=== PATIENT | female | born 1945 | race Caucasian/White ===

== ENCOUNTER → 2020-06-13 10:20 | Outpatient (CLI) | payer MEDICARE, SELFPAY ==
--- NOTE | ~2020-06-13 | XR_ITS ---
XR shoulder LT min 2V 06/13/2020 11:08 Indication: Left shoulder pain Procedure: 4 views left shoulder Comparison: No prior studies for comparison. Findings: No fracture or traumatic malalignment. There is mild degenerative change of the glenohumera l joint. There is anatomic alignment. No significant soft tissue abnormality. No foreign bodies. Impression: 1: Mild osteoarthritis of the glenohumeral joint. Reviewed, dictated and finalized at location B. Impression: 1: Mild osteoarthritis of the glenohumeral joint.
== END ==
PROVIDERS: PCP Physician Assistant
DX: M19.012 Primary osteoarthritis, left shoulder (principal)
CPT/HCPCS: 73030

== ENCOUNTER → 2020-08-16 08:39 | Outpatient (CLI) | payer MEDICARE, SELFPAY ==
--- NOTE | ~2020-08-16 | US_ITS ---
EXAMINATION: US transvaginal DATE: 08/16/2020 09:04 INDICATION: Postmenopausal bleeding. TECHNIQUE: Multiple transvaginal sonographic images of the pelvis were obtained. COMPARISON: None. FINDINGS: The uterus measures 6.0 x 3.2 x 3.5 cm. There is no free fluid in the pelvis. The endometrial complex measures 12 mm in thickness. The ovaries are not visualized. IMPRESSION: 1. Thickened endometrial complex suspicious for malignancy. Biopsy is recommended. Reviewed, dictated and finalized at location A. COORDINATOR IMPRESSION: 1. Thickened endometrial complex suspicious for malignancy. Biopsy is recommend ed.
== END ==
PROVIDERS: PCP Physician Assistant; Visit Provider Nurse Practitioner
DX: N95.0 Postmenopausal bleeding (principal)
CPT/HCPCS: 76830

== ENCOUNTER → 2020-08-30 10:02 | Outpatient (CLI) | payer MEDICARE, SELFPAY ==
--- NOTE | ~2020-08-30 | MM_ITS ---
EXAMINATION: MM screening ovidio BI w deneen HISTORY: Screening mammogram TECHNIQUE: Craniocaudal and mediolateral oblique 3-D tomosynthesis images were obtained and synthetic 2-D images were generated. CAD analysis was submitted and interpreted. COMPARISON: 06/30/2019 bilateral digital screening mammogram 03/24/2019 diagnostic left digital mammogram and limited left breast ultrasound 05/03/2018, 04/23/2017 bilateral digital screening mammogram examinations BREAST PARENCHYMAL COMPOSITION: There are scattered areas of fibroglandular density. FINDINGS: Surgical clips are noted on the right for history of prior benign right breast biopsy. Ther e is no evidence of suspicious mass, calcification, or architectural distortion to suggest malignancy in either breast. There has been no suspicious interval change. IMPRESSION: 1. No mammographic evidence of malignancy. 2. Recommend routine screening mammography in one year. BI-RADS Category 2: Benign finding(s). Reviewed, dictated and finalized at location A. STAPLER
== END ==
PROVIDERS: PCP Physician Assistant; Visit Provider Obstetrics & Gynecology Gynecology
DX: Z12.31 Encounter for screening mammogram for malignant neoplasm of breast (principal)
CPT/HCPCS: 77063; 77067

== ENCOUNTER 2020-10-02 13:06 | Outpatient (CLI) | payer MEDICARE, SELFPAY ==
--- NOTE | 2020-10-02 13:07 | ECG_ITS ---
Measurements Intervals [place] Rate: 63 P: 29 PA: 178 QRS: -4 QRSD: 105 T: 21 QT: 401 QTc: 413 Interpretive Statements SINUS RHYTHM VOLTAGE CRITERIA FOR LVH DELAYED PRECORDIAL R/S TRANSITION BORDERLINE ECG Electronically Signed On 10-02-2020 13:28:52 [employer] by Rajinder Robert D.O.
[2020-10-02 14:12] LABS: Anion Gap 10 mmol/L (8-16); Blood Urea Nitrogen 20 mg/dL (7-17); Calcium 9.5 mg/dL (8.4-10.2); Carbon Dioxide 27 mmol/L (22-30); Chloride 94 mmol/L (98-107); Estimated Glomerular Filt Rate 54; Glucose 104 mg/dL (65-105); Potassium 3.9 mmol/L (3.4-5.0); Sodium 131 mmol/L (137-145)
== END 2020-10-02 13:07 | disposition home or self-care (01) ==
PROVIDERS: Anesthesiology; PCP Physician Assistant; Visit Provider Obstetrics & Gynecology Gynecology
DX: Z01.818 Encounter for other preprocedural examination (principal); I10 Essential (primary) hypertension; E11.9 Type 2 diabetes mellitus without complications; R94.31 Abnormal electrocardiogram [ECG] [EKG]
CPT/HCPCS: 36415; 80048; 93005

== ENCOUNTER → 2020-11-16 02:18 | Outpatient (CLI) | payer MEDICARE, SELFPAY ==
[2020-11-16 21:58] LABS: SARS-CoV-2 RNA PCR Negative
== END ==
PROVIDERS: PCP Physician Assistant; Visit Provider Obstetrics & Gynecology Gynecology
DX: Z01.812 Encounter for preprocedural laboratory examination (principal); Z20.822 Contact with and (suspected) exposure to COVID-19
CPT/HCPCS: C9803; U0003; U0005

== ENCOUNTER 2020-11-16 14:25 | Outpatient (CLI) | payer MEDICARE, SELFPAY ==
[2020-11-16 15:17] LABS: Alanine Aminotransferase 22 U/L (4-35); Albumin Level 4.1 g/dL (3.5-5.1); Alkaline Phosphatase 48 U/L (38-126); Anion Gap 8 mmol/L (8-16); Aspartate Amino Transferase 33 U/L (14-36); Bilirubin,Total 0.4 mg/dL (0.2-1.3); Blood Urea Nitrogen 14 mg/dL (7-17); Carbon Dioxide 29 mmol/L (22-30); Chloride 93 mmol/L (98-107); Estimated Glomerular Filt Rate > 60; Glucose 145 mg/dL (65-105); Potassium 3.8 mmol/L (3.4-5.0); Sodium 130 mmol/L (137-145)
== END 2020-11-16 14:26 | disposition home or self-care (01) ==
LOC: ANHLAB 14:28
PROVIDERS: PCP Physician Assistant; Visit Provider Physician Assistant
DX: E87.1 Hypo-osmolality and hyponatremia (principal)
CPT/HCPCS: 36415; 80053

== ENCOUNTER 2020-11-19 00:52 | Day surgery (SDC) | payer MEDICARE, SELFPAY ==
[2020-10-01 13:37] VITALS: BMI 32.9
[2020-11-12 12:25] VITALS: BMI 33.3
[2020-11-19 06:07] VITALS: BP 152/73; PULSE 66; RESP 18; TEMP 36.1; O2SAT 98
[2020-11-19] MEDS: ACETAMINOPHEN 500 MG TABLET 1000 MG PO (06:26)
[2020-11-19] MEDS: LACTATED RINGERS 1,000 ML 30 ML IV CONT (06:28)
[2020-11-19 06:37] LABS: Glucose Point of Care 139 (65-105)
--- NOTE | 2020-11-19 07:02 | WPDANESEPPF ---
Anes - Initial Pre Proc Eval Procedure: Operation Date: 11/19/20 07:30 Proposed Procedures p Hysteroscopy Dilation and Curettage - Shayy Mccall MD Date/Time: 11/19/20 07:02 Surgeon: Shayy Mccall MD Pre Op Diagnosis: postmenopausal bleeding, thickened endometrium Patient Data Age: 75 Gender: F Height: 4 ft 11 in Weight: 75 kg Allergies Allergy/AdvReac Type Severity Reaction Status Date / Time Penicillins Allergy Unknown Rash Verified 11/12/20 12:21 codeine AdvReac Severe Nausea Verified 11/12/20 12:21 adhesive tape AdvReac Unknown Itching Verified 11/12/20 12:21 Home Medications Medication Instructions Recorded Confirmed Type amlodipine 5 mg PO QAM 10/01/20 11/12/20 History aspirin [Aspir-Low] 81 mg PO QPM 10/01/20 11/12/20 History atorvastatin 20 mg PO QPM 10/01/20 11/12/20 History diphenhydramine HCl [Sleep Aid 25 mg PO HS 10/01/20 11/12/20 History (diphenhydramine)] flaxseed oil 1,000 mg PO DAILY 10/01/20 11/12/20 History losartan-hydrochlorothiazide 1 tablet PO QAM 10/01/20 11/12/20 History meloxicam 7.5 mg PO DAILY 10/01/20 11/12/20 History metformin 500 mg PO QAM 10/01/20 11/12/20 History metoprolol succinate 25 mg PO QAM 10/01/20 11/12/20 History multivitamin,km-hiyf-qxjlqtee 1 tablet PO DAILY 10/01/20 11/12/20 History [Complete Multivitamin] omega 3-suq-jqq-fish oil [Fish Oil] 1 cap PO DAILY 10/01/20 11/12/20 History omeprazole 40 mg PO QPM 10/01/20 11/12/20 History potassium chloride [Klor-Con M20] 20 meq PO HS 10/01/20 11/12/20 History trazodone 100 mg PO HS 10/01/20 11/12/20 History vit A,C and C-etvyfk-qjdkwckc 1 tablet PO DAILY 10/01/20 11/12/20 History [Vision Formula (with lutein)] Laboratory Tests 11/19/20 06:33 POC Capillary Glucose 139 mg/dl H mg/dl (65-105) Patient hx anesthesia problems: none Family hx anesthesia problems: none PMFSH Past Medical History Medical History (Updated 11/19/20 @ 07:02 by Daryl Collado MD) Diabetes GERD (gastroesophageal reflux disease) Hyperlipidemia Hypertension Family History Family History (Updated 04/25/16 @ 23:19 by DOCTOR UNKNOWN) Mother Family history of pancreatic cancer Grandparent Family history of malignant neoplasm of breast, Onset Age: 42 Sibling Family history of malignant neoplasm of breast in first degree relative, Onset Age: 54 Social History Social History Smoking packs per day: 1.5 Smoking cigarettes per day: 30.0 Years smoked: 30 Smoking pack-years: 45.00 Smoking status: Former smoker Tobacco type: cigarettes Smoking end date: 09/28/89 Alcohol intake: never Substance use: never Living arrangements: with family Spiritual care concerns: No Anes - Eval Final PreProcedure Day of Procedure 11/19/20 07:02 Patient weight: obese Heart: regular rate and rhythm Lungs: clear to auscultation Airway: Mallampati scale class II Neurological: alert and oriented Last oral intake: >/= 8 hours ASA classification: III Emergent: no Anesthetic plan: proceed Anesthesia type and monitoring: general GIVS and standard monitoring Informed Consent: The patient's anesthetic plan and its attendant risks and benefits were discussed with the patient/family/POA. Questions were solicited and answers provided to the satisfaction of the patient/family/POA.
--- NOTE | 2020-11-19 07:11 | WPDHPUPDATE1 ---
History and Physical Update Update Date/Time: 11/19/20 07:11 History and Physical has been reviewed, including an updated exam of the patient. There are NO changes in the patient's condition. Risks, benefits, and alternatives have been discussed and questions answered. Patient agrees to proceed with procedure.
--- NOTE | 2020-11-19 07:11 | PM.HPGS ---
History of Present Illness History of Present Illness Consent: Risks, benefits, and alternatives have been discussed and questions answered. Patient agrees to proceed with procedure. Chief complaint: postmenopausal bleeding, thickened endometrium Narrative: Elizabeth Cueva is a 75 year old female with post menopausal bleeding in 08/17. Patient had u/s ordered which showed a thickened lining at 12 mm. Patient recommended to proceed with hysteroscopy with D&C which has been rescheduled 3 times for various reasons. Patient now here to proceed. No questions today. Risks of infection, bleeding, perforation, and possible pathology reviewed in office. Review of Systems Review of Systems: Narrative: not repeated day of surgery; patient states no changes in status [facility] Past Medical History Medical History (Updated 11/19/20 @ 07:16 by Shayy Mccall MD) Diabetes GERD (gastroesophageal reflux disease) Hyperlipidemia Hypertension (normal spontaneous vaginal delivery) x 3 Psoriasis Surgical History Surgical History (Updated 11/19/20 @ 07:14 by Shayy Mccall MD) S/P D&C (status post dilation and curettage) S/P laparoscopic cholecystectomy Family History Family History (Updated 04/25/16 @ 23:19 by DOCTOR UNKNOWN) Mother Family history of pancreatic cancer Grandparent Family history of malignant neoplasm of breast, Onset Age: 42 Sibling Family history of malignant neoplasm of breast in first degree relative, Onset Age: 54 Social History Social History Smoking packs per day: 1.5 Smoking cigarettes per day: 30.0 Years smoked: 30 Smoking pack-years: 45.00 Smoking status: Former smoker Tobacco type: cigarettes Smoking end date: 09/28/89 Alcohol intake: never Substance use: never Living arrangements: with family Spiritual care concerns: No Meds Home Medications and Allergies Home Medications Medication Instructions Recorded Confirmed Type amlodipine 5 mg PO QAM 10/01/20 11/12/20 History aspirin [Aspir-Low] 81 mg PO QPM 10/01/20 11/12/20 History atorvastatin 20 mg PO QPM 10/01/20 11/12/20 History diphenhydramine HCl [Sleep Aid 25 mg PO HS 10/01/20 11/12/20 History (diphenhydramine)] flaxseed oil 1,000 mg PO DAILY 10/01/20 11/12/20 History losartan-hydrochlorothiazide 1 tablet PO QAM 10/01/20 11/12/20 History meloxicam 7.5 mg PO DAILY 10/01/20 11/12/20 History metformin 500 mg PO QAM 10/01/20 11/12/20 History metoprolol succinate 25 mg PO QAM 10/01/20 11/12/20 History multivitamin,tf-yugi-ibkxkcao 1 tablet PO DAILY 10/01/20 11/12/20 History [Complete Multivitamin] omega 0-zhd-wwo-fish oil [Fish Oil] 1 cap PO DAILY 10/01/20 11/12/20 History omeprazole 40 mg PO QPM 10/01/20 11/12/20 History potassium chloride [Klor-Con M20] 20 meq PO HS 10/01/20 11/12/20 History trazodone 100 mg PO HS 10/01/20 11/12/20 History vit A,C and B-fvlmmo-tgzojykz 1 tablet PO DAILY 10/01/20 11/12/20 History [Vision Formula (with lutein)] Allergies Allergy/AdvReac Type Severity Reaction Status Date / Time Penicillins Allergy Unknown Rash Verified 11/12/20 12:21 codeine AdvReac Severe Nausea Verified 11/12/20 12:21 adhesive tape AdvReac Unknown Itching Verified 11/12/20 12:21 Exam Const: General: no acute distress GI: GI Palp: No abdominal tenderness : External Female Exam: normal external appearance Speculum Exam - Vagina: vagina atrophic Speculum Exam - Cervix: normal appearance of the cervix Bimanual exam- vagina & uterus: normal bimanual exam Assessment and Plan Assessment and plan (1) Post-menopausal bleeding: Code(s): N95.0 - Postmenopausal bleeding Status: Acute Assessment and Plan: plan to proceed with hysteroscopy with D&C
[2020-11-19 07:56] VITALS: BP 121/72; PULSE 58; RESP 16; O2SAT 93
--- NOTE | 2020-11-19 07:59 | P.OP_ITS ---
Procedure Note - Detailed Date of procedure: 11/19/20 Pre-op diagnosis: postmenopausal bleeding, thickened endometrium Post-op diagnosis: same Procedure performed: D&C hysteroscopy with myosure resection of polyp Description of procedure: The patient was taken to the operating room and placed under anesthesia in the dorsal lithotomy position. She was prepped and draped in the usual sterile fashion. [place] speculum was placed in the vagina and the cervix grasped on the anterior lip with a tenaculum. The uterus was attempted to be sounded and the cervix is noted to be stenotic. The os Finders are used and the cervix is able to be entered. Cervix is then serially dilated with Hegar size and the uterus is sounded to 8cm. The diagnostic hysteroscope was placed with the stated findings. The MyoSure device is opened and placed. U nder direct visualization the polyp was removed with the MyoSure device. The MyoSure device and hysteroscope were removed and the remaining endometrium is sharply curetted until a good uterine cry was noted in all areas. Minimal materials obtained during that process consistent with the atrophic appearance. All instruments are then removed. Sponge, instrument, and needle counts are correct per the OR staff. Fluid balance was normal. The patient is awakened from anesthesia and taken to recovery in stable condition. Anesthesia: MAC and local Surgeon: Shayy Mccall MD Estimated blood loss (mL): 5 Drains: No Packing: No Pathology: yes (endometrial shavings and curettings) Complications: No immediate complications Condition: stable Disposition: PACU Findings: cervix stenotic; uterus 8 cm; large polyp with fundal attachment filling majority of cavity; remainder of cavity appears atrophic
[2020-11-19 08:06] LABS: Glucose Point of Care 115 (65-105)
[2020-11-19] MEDS: fentaNYL CITRATE INJ (*CRX) 100 MCG/2 ML VIAL 25 MCG IV PUSH ×4 (08:10→08:19)
[2020-11-19 08:25] VITALS: BP 153/72; PULSE 57; RESP 16; O2SAT 97
[2020-11-19 08:55] VITALS: BP 141/71; PULSE 52; RESP 16
== END 2020-11-19 09:13 | disposition home or self-care (01) ==
PROVIDERS: PCP Physician Assistant; Visit Provider Obstetrics & Gynecology Gynecology
PROC: 0U5B8ZZ Destruction of Endometrium, Via Natural or Artificial Opening Endoscopic (ICD-10-PCS; CPT 58563; principal; 2020-11-19 07:30)
DX: C54.1 Malignant neoplasm of endometrium (principal); N95.0 Postmenopausal bleeding; Z79.82 Long term (current) use of aspirin; Z79.84 Long term (current) use of oral hypoglycemic drugs; E11.9 Type 2 diabetes mellitus without complications; K21.9 Gastro-esophageal reflux disease without esophagitis; E78.5 Hyperlipidemia, unspecified; I10 Essential (primary) hypertension; Z87.891 Personal history of nicotine dependence; E66.9 Obesity, unspecified; Z68.33 Body mass index [BMI] 33.0-33.9, adult
CPT/HCPCS: 58558; 36415; 80053; 82948; 88305; A9270; C9803; J2704; J3010; J7030; J7120; U0003; U0005

== ENCOUNTER → 2020-12-15 06:54 | Outpatient (CLI) | payer MEDICARE, SELFPAY ==
[2020-12-17 13:22] LABS: SARS-CoV-2 RNA PCR Negative
== END ==
PROVIDERS: PCP Physician Assistant; Visit Provider Obstetrics & Gynecology Gynecologic Oncology
DX: Z01.812 Encounter for preprocedural laboratory examination (principal); Z20.822 Contact with and (suspected) exposure to COVID-19; C54.1 Malignant neoplasm of endometrium
CPT/HCPCS: C9803; U0003; U0005

== ENCOUNTER → 2021-08-13 13:33 | Outpatient (CLI) | payer MEDICARE, SELFPAY ==
--- NOTE | ~2021-08-13 | CT_ITS ---
EXAMINATION: CT abdomen pelvis w con DATE: 08/13/2021 14:15 INDICATION: Abdominal wall bulge TECHNIQUE: Computed tomography (CT) of the abdomen and pelvis was performed with 100 mL Omnipaque-350 intravenous contrast. Automated exposure control and iterative reconstruction technique were employe d. The dose-length product was 811.37 mGy-cm. COMPARISON: None FINDINGS: Lung bases are clear. Heart size is normal. No pericardial or pleural effusion. Atherosclerotic coron randall artery calcifications and aortic valve calcification. Small sliding-type hiatal hernia. Cholecyst ectomy clips the gallbladder fossa. Liver, spleen, pancreas, bilateral adrenal glands and kidneys are normal. Small fat-containing umbilical hernia and small supraumbilical and moderate-sized infraumbil ical fat-containing ventral hernias. In addition there is a short segment of nonobstructed small rich l which extends a small caudal most midline infraumbilical ventral hernia. Prominent extensive coloni c diverticulosis with a sigmoid predominance and without adjacent inflammatory change to suggest dive rticulitis. Small bowel and appendix are normal. Bladder is normal. The uterus is not identified and has likely been surgically resected. No free intraperitoneal gas or fluid. No pathologically enlarged abdominal or pelvic lymphadenopathy. There is calcified atherosclerosis of the aorta and many of the other arteries. Mild lumbar dextroscoliosis with severe lumbar and lower thoracic spondylosis. Moder ate left and mild to moderate right hip osteoarthritis. IMPRESSION: 1. Small umbilical and 3 additional ventral hernias, the caudal-most containing a loop of nonobstruct ed small bowel and the remainder containing fat. 2. Small sliding-type hiatal hernia. 3. Extensive diverticulosis. Reviewed, dictated and finalized at location A. WASHER IMPRESSION: 1. Small umbilical and 3 additional ventral hernias, the caudal-most containing a loop of nonobstructed small bowel and the remainder containing fat. 2. Small sliding-type hiatal hernia. 3. Extensive diverticulosis.
[2021-08-13 14:03] LABS: Estimated Glomerular Filt Rate > 60
== END ==
PROVIDERS: PCP Physician Assistant; Visit Provider Physician Assistant
DX: R19.00 Intra-abdominal and pelvic swelling, mass and lump, unspecified site (principal); K44.9 Diaphragmatic hernia without obstruction or gangrene; K57.30 Diverticulosis of large intestine without perforation or abscess without bleeding; K42.9 Umbilical hernia without obstruction or gangrene; K43.9 Ventral hernia without obstruction or gangrene
CPT/HCPCS: 74177; Q9967

== ENCOUNTER → 2021-12-18 09:32 | Outpatient (CLI) | payer MEDICARE, SELFPAY ==
--- NOTE | ~2021-12-18 | DEXA_ITS ---
Bone Density Report Name: MATTIE SANCHEZ Age: 76 Sex: Female Ethnicity: White Date of : 1945 Indication: postmenopausal; screening for osteoporosis; height loss; history of glucocorticoids; hysterectomy; Referring Provider: ANDREINA, HANNAH Study: Bone densitometry was performed. Exam Date: December 18, 2021 Accession number: [id number] Bone Density: Region BMD T-score Z-score Classification AP Spine (L1-L4) 1.148 0.9 3.5 Normal Femoral Neck (Left) 0.927 0.7 2.9 Normal Total Hip (Left) 1.109 1.4 3.3 Normal Femoral Neck (Right) 0.894 0.4 2.6 Normal Total Hip (Right) 0.975 0.3 2.2 Normal Total Hip Mean 1.042 0.9 2.8 Normal World Health Organization criteria for BMD impression classify patients as: Normal (T-score at or above -1.0), Osteopenia (T-score between -1.0 and -2.5), or Osteoporosis (T-score at or below -2.5). 10-year Fracture Risk: FRAX not reported because: All T-scores for Spine Total, Hip Total, Femoral Neck at or above -1.0 Previous Exams: Region Exam Age BMD T-score BMD Change BMD Change Date g/cm2 vs Baseline vs Previous AP Spine(L1-L4) 12/18/2021 76 1.148 0.9 0.203* 0.113* 05/03/2018 72 1.035 -0.1 0.090* 0.028* 03/22/2015 69 1.007 -0.4 0.062* 0.035* 12/18/2010 65 0.972 -0.7 0.027* 0.027* 05/06/2007 61 0.945 -0.9 Total Hip(Left) 12/18/2021 76 1.109 1.4 -0.055* 0.017 05/03/2018 72 1.092 1.2 -0.072* -0.029* 03/22/2015 69 1.122 1.5 -0.043* 0.010 12/18/2010 65 1.112 1.4 -0.053* -0.053* 05/06/2007 61 1.164 1.8 Total Hip(Right) 12/18/2021 76 0.975 0.3 -0.212* -0.084* 05/03/2018 72 1.059 1.0 -0.129* -0.047* 03/22/2015 69 1.106 1.3 -0.082* 0.017 12/18/2010 65 1.089 1.2 -0.099* -0.099* 05/06/2007 61 1.188 2.0 *Denotes significance at 95% confidence level, LSC for AP Spine = 0.022 g/cm2, LSC for Total Hip = 0.027 g/cm2 Clinical Information Provided by Patient: Has taken Glucocorticoids Has the following medical conditions: Hysterectomy Patient maximum height was 62 Menopause Age: 47 Drinks caffeinated beverages Onset of menses at age 10 Number of children 3 Impression: The patient has normal bone mass. The patient has risk facto
== END ==
PROVIDERS: PCP Physician Assistant; Visit Provider Obstetrics & Gynecology Gynecology
DX: Z78.0 Asymptomatic menopausal state (principal)
CPT/HCPCS: 77080

== ENCOUNTER → 2021-12-25 14:03 | Outpatient (CLI) | payer MEDICARE, SELFPAY ==
--- NOTE | ~2021-12-25 | MM_ITS ---
EXAMINATION: MM screening ovidio BI w deneen HISTORY: Screening mammogram, family history of breast cancer in her sister. TECHNIQUE: Craniocaudal and mediolateral oblique 3-D tomosynthesis images were obtained and synthetic 2-D images were generated. CAD analysis was submitted and interpreted. COMPARISON: 08/30/2020, 06/30/2019 BREAST PARENCHYMAL COMPOSITION: The breasts are almost entirely fatty. FINDINGS: RIGHT BREAST: There is a mass in the anterior/middle third of the upper breast at the 12:00 location 5 cm from the nipple. Three surgical clips are seen near the mass from prior excisional biopsy. One p rojects immediately adjacent to the mass but is seen on the initial diagnostic mammogram performed af ter excisional biopsy and is therefore a surgical clip rather than biopsy marker. Therefore, this mas s has not undergone previous biopsy. LEFT BREAST: There is no suspicious mass, calcification, or architectural distortion to suggest malig sonja. There has been no significant interval change. IMPRESSION: 1. Right breast mass. 2. Additional mammographic views and possible breast ultrasound are recommended. BI-RADS Category 0: Incomplete: Needs additional imaging evaluation. Reviewed, dictated and finalized at location A. IMPRESSION: 1. Right breast mass. 2. Additional mammographic views and possible breast ultrasound are recommended . BI-RADS Category 0: Incomplete: Needs additional imaging evaluation.
== END ==
PROVIDERS: PCP Physician Assistant; Visit Provider Nurse Practitioner
DX: Z12.31 Encounter for screening mammogram for malignant neoplasm of breast (principal); R92.8 Other abnormal and inconclusive findings on diagnostic imaging of breast
CPT/HCPCS: 77063; 77067

== ENCOUNTER → 2022-01-08 08:34 | Outpatient (CLI) | payer MEDICARE, SELFPAY ==
--- NOTE | ~2022-01-08 | MMUS_ITS ---
EXAMINATION: MM diagnostic ovidio RT w deneen, US breast RT limited HISTORY: Mass in anterior/middle third of upper breast at 12:00 location 5 cm from nipple reported on 12/25/2021 screening mammogram examination TECHNIQUE: Additional 3-D tomosynthesis images of the right breast were performed and synthetic 2-D i mages were generated. CAD analysis was submitted and interpreted. High resolution targeted 11-1:00 ri [facility] breast ultrasound was performed. COMPARISON: 12/25/2021, 08/30/2020, 06/30/2019, 05/03/2018 bilateral screening mammogram examinations BREAST PARENCHYMAL COMPOSITION: There are scattered areas of fibroglandular density. FINDINGS: MAMMOGRAPHIC FINDINGS: An approximately 4 mm irregular soft tissue density is noted in the area of surgical clips in the upp er mid right breast approximately 5.5 cm deep to the nipple. ULTRASOUND: 1:00 5 cm from nipple: There is a hypoechoic approximately 4 mm mass with posterior shadowing, suspic ious for small malignancy. IMPRESSION: 1. Suspicious 4 millimeter mass in upper mid right breast 5 cm deep to the nipple, likely a small can cer 2. Ultrasound-guided biopsy is recommended BI-RADS category 4, suspicious findings. Dr. Gomez telephoned the report and ultrasound-guided biopsy recommendation on 01/08/2022 at 0958 hours to Adan Morales. Reviewed, dictated and finalized at location A. IMPRESSION: 1. Suspicious 4 millimeter mass in upper mid right breast 5 cm deep to the nipp le, likely a small cancer 2. Ultrasound-guided biopsy is recommended BI-RADS category 4, suspicious findings. Dr. Gomez telephoned the report and ultrasound-guided biopsy recommendation on at 0958 hours to Adan Morales. IMPRESSION: 1. Suspicious 4 millimeter mass in upper mid right breast 5 cm deep to the nipp le, likely a small cancer 2. Ultrasound-guided biopsy is recommended BI-RADS category 4, suspicious findings. Dr. Gomez telephoned the report and ultrasound-guided biopsy recommendation on at 0958 hours to Carmen, Newspaper Correspondent.
== END ==
PROVIDERS: PCP Physician Assistant; Visit Provider Obstetrics & Gynecology Gynecology
DX: N63.12 Unspecified lump in the right breast, upper inner quadrant (principal)
CPT/HCPCS: 76642; 77061; 77065; G0279

== ENCOUNTER → 2023-03-12 10:23 | Outpatient (CLI) | payer MEDICARE, SELFPAY ==
--- NOTE | ~2023-03-12 | MM_ITS ---
EXAMINATION: MM screening ovidio BI w deneen HISTORY: Screening mammogram TECHNIQUE: Craniocaudal and mediolateral oblique 3-D tomosynthesis images were obtained and synthetic 2-D images were generated. CAD analysis was submitted and interpreted. COMPARISON: 01/08/2022 diagnostic right mammogram and limited right breast ultrasound examination 12/25/2021 bilateral screening mammogram 09/26/2020 bilateral screening mammogram BREAST PARENCHYMAL COMPOSITION: The breasts are almost entirely fatty. FINDINGS: Biopsy markers on the right at approximately 4.5 mm mass; history of prior benign right leodan ast biopsy. However this density is increased from 3 mm size on 08/30/2020. For this reason, diagnosti c right mammogram and right breast ultrasound examination are recommended. Otherwise there is no evidence of suspicious mass, calcification, or architectural distortion to sugg est malignancy in either breast. There has been no other suspicious interval change. IMPRESSION: 1. Mildly increased size of upper central right breast mass 2. Diagnostic right mammogram and right breast ultrasound examination are recommended BI-RADS Category 0: Incomplete: Needs additional imaging evaluation. Reviewed, dictated and finalized at location A. IMPRESSION: 1. Mildly increased size of upper central right breast mass 2. Diagnostic right mammogram and right breast ultrasound examination are recom mended BI-RADS Category 0: Incomplete: Needs additional imaging evaluation.
== END ==
PROVIDERS: PCP Obstetrics & Gynecology Gynecology; Visit Provider Obstetrics & Gynecology Gynecology
DX: Z12.31 Encounter for screening mammogram for malignant neoplasm of breast (principal); R92.8 Other abnormal and inconclusive findings on diagnostic imaging of breast
CPT/HCPCS: 77063; 77067

== ENCOUNTER → 2023-04-14 09:36 | Outpatient (CLI) | payer MEDICARE, SELFPAY ==
--- NOTE | ~2023-04-14 | MMUS_ITS ---
EXAMINATION: MM diagnostic ovidio RT w deneen, US breast RT limited HISTORY: Follow-up right breast mass TECHNIQUE: Additional 3-D tomosynthesis images of the right breast were performed and synthetic 2-D i mages were generated. CAD analysis was submitted and interpreted. High resolution Limited right breas t ultrasound was performed. COMPARISON: Comparison to multiple prior studies sequentially, with oldest reviewed study dated 11/2018. BREAST PARENCHYMAL COMPOSITION: Breast composed of scattered areas of fibroglandular density FINDINGS: MAMMOGRAPHIC FINDINGS: There is a small mass located centrally in the right breast with associated tissue marker. This mass is not significantly changed compared with 01/08/2022 For differences of technique. ULTRASOUND: Limited right breast ultrasound: Stable oval hypoechoic mass with posterior shadowing measuring 4 x 4 x 3 mm at 1:00, 5 cm from the nipple, compared with 4 x 5 x 4 mm on 01/08/2022. IMPRESSION: 1. No significant change to oval hypoechoic right breast mass at 1:00, 5 cm from the nipple overlying for differences of technique. 2. Recommend 6 month follow-up diagnostic right mammogram and ultrasound BI-RADS category 3, probably benign findings. Reviewed, dictated and finalized at location A. IMPRESSION: 1. No significant change to oval hypoechoic right breast mass at 1:00, 5 cm fro m the nipple overlying for differences of technique. 2. Recommend 6 month follow-up diagnostic right mammogram and ultrasound BI-RADS category 3, probably benign findings.
== END ==
PROVIDERS: PCP Obstetrics & Gynecology Gynecology; Visit Provider Obstetrics & Gynecology Gynecology
DX: R92.8 Other abnormal and inconclusive findings on diagnostic imaging of breast (principal)
CPT/HCPCS: 76642; 77061; 77065; G0279

== ENCOUNTER → 2023-10-15 09:12 | Outpatient (CLI) | payer MEDICARE, SELFPAY ==
--- NOTE | ~2023-10-15 | MMUS_ITS ---
EXAMINATION: US breast RT limited, MM diagnostic ovidio RT w deneen HISTORY: Follow-up right breast mass. Previous benign biopsy. TECHNIQUE: Additional 3-D tomosynthesis images of the right breast were performed and synthetic 2-D i mages were generated. CAD analysis was submitted and interpreted. High resolution Limited right breas t ultrasound was performed. COMPARISON: Comparison to multiple prior studies sequentially, with oldest reviewed study dated 11/2018. BREAST PARENCHYMAL COMPOSITION: Breast composition is almost entirely fatty FINDINGS: MAMMOGRAPHIC FINDINGS: The right breast is stable. No new masses, calcifications or architectural distortion. Stable small n odule located in the upper central right breast with associated tissue marker, consistent with previo usly biopsy-proven benign mass. ULTRASOUND: Limited right breast ultrasound: At 1:00, 5 cm from the nipple, there is is a stable 4 mm hypoechoic mass with posterior shadowing, corresponding to the mammographic finding. No new masses are identifie d. IMPRESSION: 1. No evidence for malignancy in the right breast. Benign finding. 2. Routine yearly screening mammogram and regular clinical breast examination are recommended. BI-RADS Category 2: Benign finding(s). Reviewed, dictated and finalized at location A. PLE CHASER IMPRESSION: 1. No evidence for malignancy in the right breast. Benign finding. 2. Routine yearly screening mammogram and regular clinical breast examination a re recommended. BI-RADS Category 2: Benign finding(s).
== END ==
PROVIDERS: PCP Obstetrics & Gynecology Gynecology; Visit Provider Obstetrics & Gynecology Gynecology
DX: N63.10 Unspecified lump in the right breast, unspecified quadrant (principal); R92.8 Other abnormal and inconclusive findings on diagnostic imaging of breast
CPT/HCPCS: 76642; 77061; 77065; G0279

== ENCOUNTER 2024-03-17 09:46 | Outpatient (CLI) | payer MEDICARE, SELFPAY ==
--- NOTE | ~2024-03-17 | MM_ITS ---
EXAMINATION: MM screening ovidio BI w deneen HISTORY: Screening TECHNIQUE: Craniocaudal and mediolateral oblique 3-D tomosynthesis images were obtained and synthetic 2-D images were generated. CAD analysis was submitted and interpreted. COMPARISON: Comparison to multiple prior studies sequentially, with oldest reviewed study dated 11/2019. BREAST PARENCHYMAL COMPOSITION: Not Dense: The breasts are almost entirely fatty. 1 FINDINGS: There is no evidence of suspicious mass, calcification, or architectural distortion to sugg est malignancy in either breast. There has been no suspicious interval change. IMPRESSION: 1. No mammographic evidence of malignancy. 2. Recommend routine screening mammography in one year. BI-RADS Category 1: Negative Reviewed, dictated and finalized at location B.
== END 2024-03-17 09:47 ==
LOC: MICIMG 09:47
PROVIDERS: PCP Physician Assistant; Visit Provider Obstetrics & Gynecology Gynecology
DX: Z12.31 Encounter for screening mammogram for malignant neoplasm of breast (principal)
CPT/HCPCS: 77063; 77067

== ENCOUNTER → 2025-04-27 11:25 | Outpatient (CLI) | payer MEDICARE, SELFPAY ==
--- NOTE | ~2025-04-27 | XR_ITS ---
EXAMINATION: XR chest 2V 04/27/2025 11:47 INDICATION: Acute cough PROCEDURE: Two-view chest COMPARISON: 05/07/2015 FINDINGS: The lungs are clear. The cardiomediastinal silhouette is within normal limits. There are no pleural effusions. There is no pneumothorax suspected. IMPRESSION: 1: NO ACUTE CARDIOPULMONARY DISEASE. Reviewed, dictated and finalized at location B.
== END ==
LOC: EXPCRAD 11:29
PROVIDERS: PCP Physician Assistant; Visit Provider Physician Assistant
DX: R05.1 Acute cough (principal)
CPT/HCPCS: 71046

== ENCOUNTER 2025-09-27 08:34 | Outpatient (CLI) | payer MEDICARE, SELFPAY ==
--- NOTE | ~2025-09-27 | MM_ITS ---
EXAMINATION: MM screening ovidio BI w deneen HISTORY: Screening TECHNIQUE: Craniocaudal and mediolateral oblique 3-D tomosynthesis images were obtained and synthetic 2-D images were generated. CAD analysis was submitted and interpreted. COMPARISON: 2023, 2022, and 2021 BREAST PARENCHYMAL COMPOSITION: There are scattered areas of fibroglandular tissue. FINDINGS: No suspicious masses are seen. There are no suspicious calcifications. No unexplained architectural distortion is seen. There are no skin or nipple abnormalities identified. There is no adenopathy seen on the images submitted. IMPRESSION: No mammographic evidence to suggest malignancy is seen. The patient may return to screening mammography as per ACR guidelines. BI-RADS 1 - Negative. Reviewed, dictated and finalized at location C. OL OPERATOR
== END 2025-09-27 08:35 | disposition home or self-care (01) ==
PROVIDERS: PCP Physician Assistant; Visit Provider Obstetrics & Gynecology Gynecology
DX: Z12.31 Encounter for screening mammogram for malignant neoplasm of breast (principal)
CPT/HCPCS: 77063; 77067